=== PATIENT | male | born 1940 | race Caucasian/White ===

== ENCOUNTER 2017-02-17 17:32 | Emergency (ER) | payer MEDICARE, OTHER ==
[~2017-02-17] VITALS: Ht 172.7 cm; Wt 63.0 kg
[2017-02-17 19:04] VITALS: BP 124/83; PULSE 95; RESP 18; TEMP 98.7; O2SAT 98
[2017-02-17] MEDS ORDERED: LEVEMIR SQ (19:18)
[2017-02-17] MEDS ORDERED: BUPR150T3 PO (19:18)
--- NOTE | 2017-02-17 19:32 | PD ---
HPI Chief Complaint: Psychiatric Symptoms Time Seen by Provider: 19:20 Travel History International Travel<30 days: No Contact w/Intl Traveler<30days: No Traveled to known affect area: No History of Present Illness HPI Patient 76 years old and arrives by police. Evidently he was reported as a "missing person." Having argued with the family regarding to his car and left home, which was in [facility]. He drove to [facility], about a [address] , where police identified him and placed him under a Blake act. Reportedly he has a history of depression, diabetes and CABG. In the ER he has no medical complaint other than hunger. He has no intent to harm others or himself. PFSH Past Medical History Depression: Yes Diabetes: Yes Patient Takes Glucophage: No Diminished Hearing: Yes Medical other: Yes (DEMENTIA) Tetanus Vaccination: Unknown Past Surgical History Surgical History: Unable to Obtain Social History Alcohol Use: No Tobacco Use: No Substance Use: No Allergies-Medications (Allergen,Severity, Reaction): Coded Allergies: UNOBTAINABLE (Unverified , 02/17/17) Reported Meds & Prescriptions Reported Meds & Active Scripts Active Reported Bupropion HCl ER 24 HR (Bupropion HCl) 150 Mg Tab 150 Mg PO DAILY Levemir Inj (Insulin Detemir) 1,000 unit/ 10 ML Vial 10 Units SQ HS Do not mix with any other Insulin. Review of Systems Except as stated in HPI: all other systems reviewed are Neg Physical Exam Narrative GENERAL: 76-year-old male pleasant well-nourished well-developed SKIN: Focused skin assessment warm/dry. HEAD: Atraumatic. Normocephalic. EYES: Pupils equal and round. No scleral icterus. No injection or drainage. ENT: No nasal bleeding or discharge. Mucous membranes pink and moist. NECK: Trachea midline. No JVD. CARDIOVASCULAR: Regular rate and rhythm. No murmur appreciated. RESPIRATORY: No accessory muscle use. Clear to auscultation. Breath sounds equal bilaterally. GASTROINTESTINAL: Abdomen soft, non-tender, nondistended. Hepatic and splenic margins not palpable. MUSCULOSKELETAL: No obvious deformities. No clubbing. No cyanosis. No edema. NEUROLOGICAL: Patient is awake and alert times location knowing that he is in a hospital. He also knows his home address. His cranial nerves are normal. Motor function normal. PSYCHIATRIC: Appropriate mood and affect; insight and judgment normal. Data Data Last Documented VS Vital Signs Date Time Temp Pulse Resp B/P Pulse Ox O2 Delivery O2 Flow Rate FiO2 02/17/17 19:04 98.7 95 18 124/83 98 Vital signs reviewed Orders Blood Glucose (02/17/17 19:26) Diet Diabetic (02/17/17 Dinner) MDM Medical Decision Making Medical Screen Exam Complete: Yes Emergency Medical Condition: Yes Differential Diagnosis Missing person, dementia, hypoglycemia Narrative Course Patient has no medical complaint. He has not a psychiatric emergency either. His family will be her in the morning and take him home. We'll observe him in the ER overnight. Diagnosis Primary Impression: Family discord Referrals: Primary Care Physician 2 days Additional Instructions: You have a choice when it comes to health care, and we are glad that you chose [facility]. Hopefully, we have met your expectations on today's visit. You are welcome to return to [facility] at any time, as we are committed to meeting the health care needs of our community. Med/Other Pt SpecificInfo: No Change to Meds Disposition: 01 DISCHARGE HOME Condition: Stable Darin Schneider MD Feb 17, 2017 19:32
[2017-02-18] VITALS: BP 120/80; PULSE 80; RESP 18; O2SAT 97
[2017-02-18 07:30] VITALS: BP 147/71; PULSE 80; RESP 18; O2SAT 98
[2017-02-18 11:34] VITALS: BP 152/67
== END 2017-02-18 11:35 | disposition home or self-care (01) ==
LOC: NEPD 17:32
DX: Z63.9 Problem related to primary support group, unspecified (principal); E11.9 Type 2 diabetes mellitus without complications; F03.90 Unspecified dementia, unspecified severity, without behavioral disturbance, psychotic disturbance, mood disturbance, and anxiety; H91.90 Unspecified hearing loss, unspecified ear; Z79.4 Long term (current) use of insulin; Z86.59 Personal history of other mental and behavioral disorders; Z95.1 Presence of aortocoronary bypass graft
CPT/HCPCS: 99283